=== PATIENT | female | born 1985 | race American Indian/Alaskan Native ===

== ENCOUNTER 2019-03-20 20:48 | Emergency (ER) | payer SELFPAY ==
--- NOTE | 2019-03-20 21:03 | Event Note ---
ED Screening Note ED Screening Note: left sided facial pain that began in january left upper dental pain no rhinorrhea no congestion states she has a dental problem on the left side, needs a tooth extraction has not seen a dentist in a year no fever no facial edema LNMP last week no PMHx no daily meds no allergies to meds will d/c from triage, full note to follow
[2019-03-20 21:05] VITALS: BP 112/93
--- NOTE | 2019-03-20 21:08 | Emergency Department Report ---
ED ENT HPI - General Chief complaint: Upper Respiratory Infection Stated complaint: SINUS INFECTION/FACIAL PAIN Time Seen by Provider: 03/20/19 20:58 Source: patient Mode of arrival: Ambulatory Limitations: No Limitations - History of Present Illness Initial comments: pt is a 33 yo female who persents for left sided facial pain that began in january. she states she has left upper dental pain. she denies any rhinorrhea, congestion, fever, facial edema. she states she has a known dental problem on the left side, needs a tooth extraction. Pt has not seen a dentist in a year. LNMP last week no PMHx no daily meds no allergies to meds - Related Data Previous Rx's Medication Instructions Recorded Last Taken Type Acetaminophen/Codeine [Tylenol 1 tab PO Q6H PRN #10 tab 03/20/19 Unknown Rx /Codeine # 3 tab] Ibuprofen [Motrin 800 MG tab] 800 mg PO Q8HR PRN #14 tablet 03/20/19 Unknown Rx Penicillin Vk [Veetids TAB] 500 mg PO QID 7 Days #28 tablet 03/20/19 Unknown Rx Allergies Allergy/AdvReac Type Severity Reaction Status Date / Time latex Allergy Unknown Verified 03/20/19 20:52 ED Dental HPI - General Chief complaint: Upper Respiratory Infection Stated complaint: SINUS INFECTION/FACIAL PAIN Time Seen by Provider: 03/20/19 20:58 Source: patient Mode of arrival: Ambulatory Limitations: No Limitations - Related Data Previous Rx's Medication Instructions Recorded Last Taken Type Acetaminophen/Codeine [Tylenol 1 tab PO Q6H PRN #10 tab 03/20/19 Unknown Rx /Codeine # 3 tab] Ibuprofen [Motrin 800 MG tab] 800 mg PO Q8HR PRN #14 tablet 03/20/19 Unknown Rx Penicillin Vk [Veetids TAB] 500 mg PO QID 7 Days #28 tablet 03/20/19 Unknown Rx Allergies Allergy/AdvReac Type Severity Reaction Status Date / Time latex Allergy Unknown Verified 03/20/19 20:52 ED Review of Systems ROS: Stated complaint: SINUS INFECTION/FACIAL PAIN Other details as noted in HPI Comment: All other systems reviewed and negative ED Past Medical Hx - Past Medical History Previous Medical History?: Yes Additional medical history: syncope - Surgical History Past Surgical History?: Yes Additional Surgical History: Tonsillectomy, D&C - Social History Smoking Status: Current Every Day Smoker Substance Use Type: None - Medications Home Medications: Home Medications Medication Instructions Recorded Confirmed Last Taken Type Acetaminophen/Codeine [Tylenol 1 tab PO Q6H PRN #10 tab 03/20/19 Unknown Rx /Codeine # 3 tab] Ibuprofen [Motrin 800 MG tab] 800 mg PO Q8HR PRN #14 tablet 03/20/19 Unknown Rx Penicillin Vk [Veetids TAB] 500 mg PO QID 7 Days #28 tablet 03/20/19 Unknown Rx ED Physical Exam - General Limitations: No Limitations General appearance: alert, in no apparent distress - Head Head exam: Present: atraumatic, normocephalic - Eye Eye exam: Present: normal appearance, PERRL - ENT ENT exam: Present: normal orophraynx, mucous membranes moist, other (normal nasal turbinates bilaterally, no sinus TTP, pt has two teeth cracked on the left upper side with residual pieces of tooth remaining, dental caries present, no erythema, no induration, no fluctuance, no facial edema, uvula is midline, no uvular edema) - Respiratory Respiratory exam: Present: normal lung sounds bilaterally. Absent: respiratory distress, wheezes, rales, rhonchi, stridor, chest wall tenderness, accessory muscle use, decreased breath sounds, prolonged expiratory - Cardiovascular Cardiovascular Exam: Present: regular rate, normal rhythm, normal heart sounds. Absent: systolic murmur, diastolic murmur, rubs, gallop - Neurological Exam Neurological exam: Present: alert, oriented X3 - Psychiatric Psychiatric exam: Present: normal affect, normal mood - Skin Skin exam: Present: warm, dry, intact ED Course Vital Signs 03/20/19 21:03 Temperature 98.3 F Pulse Rate 73 Respiratory 18 Rate Blood Pressure 112/93 [Left] O2 Sat by Pulse 100 Oximetry ED Medical Decision Making - Medical Decision Making pt is a 33 yo female who persents for left sided facial pain that began in january. she states she has left upper dental pain. she denies any rhinorrhea, congestion, fever, facial edema. she states she has a known dental problem on the left side, needs a tooth extraction. Pt has not seen a dentist in a year. LNMP last week no PMHx no daily meds no allergies to meds vitals are normal. on exam: normal nasal turbinates bilaterally, no sinus TTP, pt has two teeth cracked on the left upper side with residual pieces of tooth remaining, dental caries present, no erythema, no induration, no fluctuance, no facial edema, uvula is midline, no uvular edema. no signs of dental abscess. pt given anti-inflammatory, pain medication, and abx. discussed to take all medication as prescribed. do not drive or operate heavy machinery while taking pain medicine. please follow up with a dentist in the next 3 days. it is very important you follow up with a dentist. pt given list of dental resources in the area. return to the emergency room for any new or worsening symptoms. - Differential Diagnosis dental caries, cracked tooth, dental infection, dental abscess Critical care attestation.: If time is entered above; I have spent that time in minutes in the direct care of this critically ill patient, excluding procedure time. ED Disposition Clinical Impression: Cracked tooth, Dental caries Disposition: TO HOME OR SELFCARE Is pt being admited?: No Does the pt Need Aspirin: No Condition: Stable Instructions: Dental Caries (ED) Additional Instructions: Please take medication as prescribed. do not drive or operate heavy machinery while taking pain medicine. please follow up with a dentist in the next 3 days. it is very important you follow up with a dentist. return to the emergency room for any new or worsening symptoms. Prescriptions: Ibuprofen [Motrin 800 MG tab] 800 mg PO Q8HR PRN #14 tablet PRN Reason: Pain, Moderate (4-6) Acetaminophen/Codeine [Tylenol /Codeine # 3 tab] 1 tab PO Q6H PRN #10 tab PRN Reason: Pain , Severe (7-10) Penicillin Vk [Veetids TAB] 500 mg PO QID 7 Days #28 tablet Referrals: a, dentist [Other] - 2-3 Days [facility] [Outside] - 2-3 Days [facility] [Provider Group] - 2-3 Days Time of Disposition: 21:05 Print Language: SAUDI ARABIAN
== END 2019-03-20 21:14 | disposition home or self-care (01) ==
LOC: ED 20:48
DX: K03.81 Cracked tooth (principal); K02.9 Dental caries, unspecified; F17.200 Nicotine dependence, unspecified, uncomplicated; Z90.89 Acquired absence of other organs; Z91.040 Latex allergy status

== ENCOUNTER 2019-03-22 09:31 | Emergency (ER) | payer SELFPAY ==
[2019-03-22 09:50] VITALS: BP 120/69
[2019-03-22] MEDS ORDERED: CLEOCIN PO ONE (11:09)
[2019-03-22] MEDS ORDERED: NORCO 5/325 PO ONE (11:09)
[2019-03-22] MEDS ORDERED: IBUPROFEN PO ONE (11:09)
--- NOTE | 2019-03-22 11:27 | Emergency Department Report ---
ED General Adult HPI - General Chief complaint: Headache Stated complaint: HEAR PAIN Time Seen by Provider: 03/22/19 11:00 Source: patient Mode of arrival: Ambulatory Limitations: No Limitations - History of Present Illness Initial comments: Patient is a 33-year-old female who is presenting for the second time in 2 days for left-sided facial pain. Patient's was diagnosed with dental caries however she was placed on Tylenol 3 and Pen-Vee K 2 days ago. Patient states the pain meds are not helping. Patient states pain is 10 severity and is in the left face radiating to the top of her head and into her jaw. Patient denies any difficulty swallowing or neck stiffness. Patient was told she needs to see a dentist but has not seen a dentist as of yet. - Related Data Previous Rx's Medication Instructions Recorded Last Taken Type Ibuprofen [Motrin 800 MG tab] 800 mg PO Q8HR PRN #14 tablet 03/20/19 Unknown Rx Clindamycin [Clindamycin CAP] 300 mg PO Q8H #21 cap 03/22/19 Unknown Rx HYDROcodone/APAP 5-325 [[place] 1 each PO Q6HR PRN #10 tablet 03/22/19 Unknown Rx 5/325] Allergies Allergy/AdvReac Type Severity Reaction Status Date / Time latex Allergy Unknown Verified 03/20/19 20:52 ED Review of Systems ROS: Stated complaint: HEAR PAIN Other details as noted in HPI Comment: All other systems reviewed and negative ED Past Medical Hx - Past Medical History Previous Medical History?: No Additional medical history: syncope - Surgical History Past Surgical History?: Yes Additional Surgical History: Tonsillectomy, D&C - Social History Smoking Status: Current Some Day Smoker Substance Use Type: None - Medications Home Medications: Home Medications Medication Instructions Recorded Confirmed Last Taken Type Ibuprofen [Motrin 800 MG tab] 800 mg PO Q8HR PRN #14 tablet 03/20/19 Unknown Rx Clindamycin [Clindamycin CAP] 300 mg PO Q8H #21 cap 03/22/19 Unknown Rx HYDROcodone/APAP 5-325 [[place] 1 each PO Q6HR PRN #10 tablet 03/22/19 Unknown Rx 5/325] ED Physical Exam - General Limitations: No Limitations General appearance: in distress - Head Head exam: Present: atraumatic, normocephalic - Expanded Head Exam Expanded 1 - mild facial swelling without fluctuance - Eye Eye exam: Present: normal appearance. Absent: PERRL, EOMI - Expanded ENT Exam Expanded Mouth exam: Present: tongue normal. Absent: tongue elevation Teeth exam: Present: dental caries 1 - Dental Tenderness, Other - Neck Neck exam: Present: normal inspection - Respiratory Respiratory exam: Present: normal lung sounds bilaterally. Absent: respiratory distress, wheezes, rales - Cardiovascular Cardiovascular Exam: Present: regular rate, normal rhythm, normal heart sounds - Skin Skin exam: Present: warm, dry, intact, normal color ED Course Vital Signs 03/22/19 09:48 Temperature 97.8 F Pulse Rate 65 Respiratory 20 Rate Blood Pressure 120/69 O2 Sat by Pulse 99 Oximetry ED Medical Decision Making - Medical Decision Making Patient likely has a dental abscess with some mild facial cellulitis. Patient states she is unhappy with the pen VK and she's been taking that she feels as though it's a low-dose according to the pharmacy that she picked it up from. Pen VK dosage was within normal limits for an adult. However we'll switch her to clindamycin and patient will be given several Vicodin for pain. Critical care attestation.: If time is entered above; I have spent that time in minutes in the direct care of this critically ill patient, excluding procedure time. ED Disposition Clinical Impression: Dental abscess, Facial cellulitis Disposition: - TO HOME OR SELFCARE Is pt being admited?: No Does the pt Need Aspirin: No Condition: Stable Instructions: Dental Abscess (ED) Time of Disposition: 11:28
== END 2019-03-22 11:35 | disposition home or self-care (01) ==
LOC: ED 09:31
DX: K02.9 Dental caries, unspecified (principal); L03.211 Cellulitis of face; F17.200 Nicotine dependence, unspecified, uncomplicated; Z90.89 Acquired absence of other organs; Z91.040 Latex allergy status
CPT/HCPCS: 99282